=== PATIENT | male | born 1950 | race Caucasian/White ===

== ENCOUNTER 2022-10-23 08:34 | Outpatient (CLI) | payer MEDICARE, OTHER | END 2022-10-23 08:35 | disposition home or self-care (01) | LOC: ULT 08:34 | PROVIDERS: ATTEND Internal Medicine Cardiovascular Disease | DX: Z13.6 Encounter for screening for cardiovascular disorders (principal); I67.2 Cerebral atherosclerosis; I11.9 Hypertensive heart disease without heart failure; I08.1 Rheumatic disorders of both mitral and tricuspid valves | CPT/HCPCS: 76775; 93306; 93880 ==